=== PATIENT | female | born 1980 | race Caucasian/White ===

== ENCOUNTER → 2016-06-04 | Outpatient (CLI) | payer OTHER | LOC: LAB.O 12:18 | PROVIDERS: ATTEND Nurse Practitioner Acute Care | DX: E03.9 Hypothyroidism, unspecified (principal) ==

== ENCOUNTER → 2016-09-30 | Outpatient (CLI) | payer OTHER ==
--- NOTE | 2016-10-03 11:47 | RAD ---
EXAM DESCRIPTION: Foot,Left 3 Views CLINICAL HISTORY: 35 years, Female, PLANTAR FASCIITIS COMPARISON: None TECHNIQUE: AP, lateral, and oblique views of the left foot FINDINGS: There is no bone, joint, or soft tissue abnormality observed. There is no radiopaque foreign body. Tiny amount of spurring at the origin of the plantar fascia is noted with mild soft tissue swelling anterior to this location consistent with an element of inflammation of the plantar fascia. A small accessory ossicle posterior to the ankle mortise and mild degenerative changes anteriorly are noted. IMPRESSION: Nonspecific foot three views with no acute injury Electronically signed by: Konrad Burt MD 10/03/2016 11:47 AM CDT
== END ==
LOC: RAD 11:15
PROVIDERS: ATTEND Orthopaedic Surgery
DX: M72.2 Plantar fascial fibromatosis (principal)

== ENCOUNTER → 2016-10-04 | Outpatient (CLI) | payer OTHER | END | disposition home or self-care (01) | LOC: LAB.O 09:18 | PROVIDERS: ATTEND Obstetrics & Gynecology | DX: Z79.899 Other long term (current) drug therapy (principal) ==

== ENCOUNTER → 2016-12-30 | Outpatient (CLI) | payer OTHER | END | disposition home or self-care (01) | LOC: LAB.O 11:59 | PROVIDERS: ATTEND Physician Assistant | DX: I10 Essential (primary) hypertension (principal) ==

== ENCOUNTER → 2017-07-09 | Outpatient (CLI) | payer OTHER | LOC: GMAJ 06:56 | PROVIDERS: ATTEND Family Medicine | DX: I10 Essential (primary) hypertension (principal); E03.9 Hypothyroidism, unspecified ==

== ENCOUNTER → 2018-10-09 | Outpatient (CLI) | payer OTHER | LOC: GMA 14:32 | PROVIDERS: ATTEND Nurse Practitioner Family | DX: R53.82 Chronic fatigue, unspecified (principal) ==

== ENCOUNTER → 2018-10-17 | Outpatient (CLI) | payer OTHER | LOC: GMAHI 10:21 | PROVIDERS: ATTEND Nurse Practitioner Family | DX: E34.9 Endocrine disorder, unspecified (principal) ==

== ENCOUNTER → 2019-09-06 | Outpatient (CLI) | payer OTHER | LOC: GMAJ 12:18 | PROVIDERS: ATTEND Family Medicine | DX: E03.8 Other specified hypothyroidism (principal); I10 Essential (primary) hypertension; E78.00 Pure hypercholesterolemia, unspecified ==